=== PATIENT | female | born 1980 | race Caucasian/White ===

== ENCOUNTER → 2021-01-04 11:14 | Outpatient (CLI) | payer OTHER, SELFPAY ==
--- NOTE | 2021-01-04 | DI.MRI.S_ITS ---
PROCEDURE: MR LUMBAR SPINE WO CON INDICATIONS: Spinal stenosis, lumbar region with neurogenic claudication TECHNIQUE: Noncontrast sagittal T1 spin echo and T2 fast echo, sagittal STIR, axial T1 and T2 fast spin echo through the lumbar spine. In cases with scoliosis, additional coronal T2 fast spin echo may be performed. COMPARISON: [facility] Outside Film, MR, MR LUMBAR SPINE WITHOUT CONTRAST, 03/16/2018, 20:55. FINDINGS: Image quality: Excellent. Alignment and Curvature: No plain films are available for comparison, for numbering purposes. Thus, for the purposes of this examination, 5 lumbar type vertebral bodies will be presumed, as denoted on the montage panel. This should be confirmed and correlated with plain films, prior to any lumbar spinal intervention. Loss of normal lumbar lordosis. Minimal grade 1 retrolisthesis of L3 on L4 and L4 on L5. Bone Marrow: Marrow is of normal overall signal. No acute vertebral body compression fractures. Mild reactive signal within the endplates adjacent to the L3-L4 and L4-L5 intervertebral discs. Spinal Cord: Conus medullaris terminates at the mid L2 level. Visualized cord demonstrates normal signal and size. Paraspinous Soft Tissues: No paravertebral masses. T12-L1: Mild disc height loss. No significant canal, or foraminal stenosis. No significant change. L1-L2: Normal appearance. L2-L3: Mild facet and ligamentum flavum hypertrophy. No significant canal, or foraminal stenosis. No change. L3-L4: Mild disc height loss and desiccation. Mild diffuse disc bulge. Mild facet and ligamentum flavum hypertrophy. Mild epidural lipomatosis. Mild canal stenosis. Mild bilateral foraminal stenosis. L4-L5: Moderate disc height loss and desiccation. Mild diffuse disc bulge. Mild facet and ligamentum flavum hypertrophy. Mild epidural lipomatosis. Mild canal stenosis. Mild bilateral foraminal stenosis. No significant change. L5-S1: Mild facet and ligamentum flavum hypertrophy. No significant canal, or foraminal stenosis. No significant change. IMPRESSION: 1. Multilevel degenerative disc and facet disease, as well as ligamentum flavum hypertrophy and epidural lipomatosis. 2. Mild multilevel canal and foraminal stenoses. Dictated by: Presley Villarreal M.D. on 01/05/2021 at 9:09 Approved by: Presley Villarreal M.D. on 01/05/2021 at 9:15
== END ==
PROVIDERS: Referring Provider Orthopaedic Surgery Orthopaedic Surgery of the Spine; Visit Provider Orthopaedic Surgery Orthopaedic Surgery of the Spine
DX: M48.062 Spinal stenosis, lumbar region with neurogenic claudication (principal)
CPT/HCPCS: 72148

== ENCOUNTER 2023-01-15 18:20 | Emergency (ER) | payer OTHER, SELFPAY ==
[2023-01-15 18:51] VITALS: BP 159/102; PULSE 89; RESP 20; TEMP 37.1; O2SAT 99; BMI 33.6
--- NOTE | 2023-01-15 19:51 | PC.NURSE ---
pt states she has noted purulent drainage, pt does not have a dentist
--- NOTE | 2023-01-15 20:18 | ED.GENADULT ---
HPI - General Adult General Chief complaint: Dental/Oral Stated complaint: INFECTED TOOTH Time Seen by Provider: 01/15/23 20:05 Source: patient Mode of arrival: Family Vehicle History of Present Illness HPI narrative: Patient is a 42-year-old female with left-sided facial swelling and dental pain. She has had issues like this in the past receiving antibiotics for them. No problems breathing or swallowing. Related Data Previous Rx's Medication Instructions Recorded penicillin V potassium 500 mg 500 mg PO QID 7 days #28 tabs 01/15/23 tablet Allergies Allergy/AdvReac Type Severity Reaction Status Date / Time acetaminophen [From [place]] Allergy ITCHING Verified 01/15/23 18:58 hydrocodone [From [place]] Allergy ITCHING Verified 01/15/23 18:58 oxycodone Allergy Hives Verified 01/15/23 18:58 amoxicillin [From Augmentin] AdvReac Diarrhea Verified 01/15/23 18:58 ciprofloxacin [From Cipro] AdvReac Shakiness Verified 01/15/23 18:58 clavulanic acid AdvReac Diarrhea Verified 01/15/23 18:58 [From Augmentin] oxybutynin AdvReac Dry Eye Verified 01/15/23 18:58 Review of Systems Constitutional Constitutional: Reports system reviewed and no additional complaints, except as documented ENT Ears, Nose, Mouth, and Throat: Reports system reviewed and no additional complaints, except as documented Respiratory Respiratory: Reports system reviewed and no additional complaints, except as documented Integumentary/Breasts Skin/Breast: Reports system reviewed and no additional complaints, except as documented Hematologic/Lymphatic On Anticoagulants: No Patient History Social History Smoking Status: Never smoker Smoking Status: Never smoker alcohol intake frequency: a few times a month Substance Use Type: does not use Exam Initial Vital Signs Initial Vital Signs: Vital Signs Temperature 98.7 F 01/15/23 18:51 Pulse Rate 89 01/15/23 18:51 Respiratory Rate 20 01/15/23 18:51 Blood Pressure 159/102 H 01/15/23 18:51 Pulse Oximetry 99 01/15/23 18:51 Oxygen Delivery Method Room Air 01/15/23 18:51 HENMT Head: normal to inspection and normocephalic Ears: TM's normal bilaterally Face and sinus: no erythema and other (Swelling left-sided mandibular region) Mouth: oral mucosae normal and moist mucous membranes Teeth and gingiva: fair dentition Resp Effort & Inspection: normal respiratory effort Skin General: no rashes or lesions noted Neuro General: patient alert, patient awake and moves all extremities Extrem General: normal to inspection and capillary refill normal Psych Appearance: grossly normal and well kempt Course Orders Ordered: Discontinued Medications Penicillin V Potassium (Penicillin Vk 250 Mg Tablet) 500 mg PO NOW ONE Stop: 01/15/23 20:20 Last Admin: 01/15/23 20:22 Dose: 500 mg Documented By: MADELIN Vital Signs Vital signs: Vital Signs - 8 hr 01/15/23 18:51 Temperature 98.7 F Pulse Rate 89 Respiratory Rate 20 Blood Pressure 159/102 H Pulse Oximetry 99 Oxygen Delivery Method Room Air Medical Decision Making MDM Narrative Medical decision making narrative: Is no defined abscess noted in the oral cavity although her history and physical exam would be consistent with a dental infection. There are no skin changes over the area consistent with cellulitis. We do need to put her on antibiotics she was given a dose here in the emergency department was sent home with a prescription. She was instructed she need to follow-up with the dentist. She was given return precautions. She expressed understanding and agreement. Discharge Plan Departure Patient Disposition: Home Clinical Impression: Dental abscess Instructions: Tooth Abscess Activity Restrictions/Additional Instructions: I do recommend that you take the antibiotics as directed. You also need a follow-up with a dentist as an outpatient. The antibiotics were sent to the pharmacy of your choice. Return to the emergency department for new or worsening symptoms. Prescriptions: New penicillin V potassium 500 mg tablet 500 mg PO QID 7 Days Qty: 28 0RF Referrals: ProviderMike [Primary Care Provider] - Stand Alone Forms: Patient Portal/API
[2023-01-15] MEDS: PENICILLIN VK 250 MG TABLET 500 MG PO (20:22)
== END 2023-01-15 20:25 | disposition home or self-care (01) ==
PROVIDERS: Emergency Provider Emergency Medicine
DX: K04.7 Periapical abscess without sinus (principal)
CPT/HCPCS: 99283

== ENCOUNTER → 2024-07-10 10:07 | Outpatient (CLI) | payer OTHER, SELFPAY | PROVIDERS: Referring Provider Family Medicine; Visit Provider Family Medicine | DX: R92.8 Other abnormal and inconclusive findings on diagnostic imaging of breast (principal) ==

== ENCOUNTER → 2024-07-16 09:32 | Outpatient (CLI) | payer OTHER, SELFPAY ==
--- NOTE | 2024-07-16 | DI.MG.S_ITS ---
UNILATERAL LEFT DIGITAL DIAGNOSTIC MAMMOGRAM 3D/2D WITH ADDITIONAL VIEWS: 07/16/2024 CLINICAL: Additional evaluation requested from prior study. Comparison is made to exams dated: 06/27/2024 mammogram and 06/14/2022 mammogram - outside location. The breasts are heterogeneously dense, which may obscure small masses (category c / 51-75% glandular tissue). Redemonstration of previously described oval focal asymmetry in the left breast at 9 o'clock posterior depth. This is seen in additional views. No other significant masses or calcifications are seen in the breast. IMPRESSION: INCOMPLETE: NEED ADDITIONAL IMAGING EVALUATION The oval focal asymmetry in the left breast resembles a cyst or a lymph node and is indeterminate. An ultrasound is recommended for further evaluation and is scheduled to immediately follow this examination. Based on the Tyrer Cuzick model (a risk assessment model) the patient's lifetime risk is 14.3% and her 10 year risk is 2.4%. According to the ACR, ACS, and NCCN guidelines, an annual breast MRI exam along with mammogram is recommended if the patient's lifetime risk is 20% or greater. This exam was interpreted at Station ID: [id number]. NOTE: For mammograms, a report in lay terms will be sent to the patient. Approximately 15% of breast malignancies will not be visualized mammographically. In the management of a palpable breast mass, a negative mammogram must not discourage biopsy of a clinically suspicious lesion. Electronically Signed By: Fabian Bolden M.D. aty/:07/17/2024 07:58:35 letter sent: Additional Imaging Needed ACR BI-RADS Category 0: Incomplete: Need Additional Imaging Evaluation
--- NOTE | 2024-07-16 09:33 | DI.US.S_ITS ---
LIMITED ULTRASOUND OF LEFT BREAST: 07/16/2024 CLINICAL: Patient returns today to evaluate an asymmetry in the left breast. Comparison is made to exams dated: 07/16/2024 mammogram - [facility], 06/27/2024 mammogram, and 06/14/2022 mammogram - outside location. Color flow and real-time ultrasound of the left breast 9 o'clock region were performed. Fisher scale images of the real-time examination were reviewed. There is a 0.5 cm x 0.3 cm x 0.5 cm oval mass in the left breast at 9 o'clock posterior depth 15 cm from the nipple. This oval mass is hypoechoic. This correlates with mammography findings. Color flow imaging demonstrates that there is no vascularity present. IMPRESSION: PROBABLY BENIGN The 0.5 cm x 0.3 cm x 0.5 cm oval mass in the left breast resembles a complicated cyst or a lymph node and is probably benign. A follow-up left mammogram and a left ultrasound in 6 months is recommended to demonstrate stability. Findings and recommendations were conveyed to the patient during today's evaluation. This exam was interpreted at Station ID: [id number]. Electronically Signed By: Fabian Bolden M.D. aty/:07/17/2024 08:00:43 letter sent: Followup Recommended ACR BI-RADS Category 3: Probably Benign
== END ==
PROVIDERS: Referring Provider Family Medicine; Visit Provider Family Medicine
DX: R92.8 Other abnormal and inconclusive findings on diagnostic imaging of breast (principal); R92.333 Mammographic heterogeneous density, bilateral breasts; N63.25 Unspecified lump in the left breast, overlapping quadrants
CPT/HCPCS: 76642; 77065; G0279

== ENCOUNTER → 2025-03-19 10:15 | Outpatient (CLI) | payer OTHER, SELFPAY ==
--- NOTE | 2025-03-19 10:16 | DI.MG.S_ITS ---
MM diagnostic mammo unilat LT, US breast LT limited: 03/19/2025 BI-RADS: 3 CLINICAL: 44-year old female for left diagnostic mammogram and left diagnostic breast ultrasound. Tyrer-Cuzick lifetime risk of 17.0%. No personal or first-degree family history of breast cancer. PRIOR EXAMS 07/16/2024, Outside [facility] 06/27/2024, 06/14/2022. MAMMOGRAPHY TECHNIQUE: 2D and 3D (tomosynthesis) digital mammographic views obtained, with additional images as needed for full coverage. Current study was also evaluated with a Computer Aided Detection (CAD) system. ULTRASOUND TECHNIQUE TARGETED Left Breast Ultrasound: Real-time ultrasound exam was performed focused to area of clinical and/or imaging concern. DENSITY Left: C. The breasts are heterogeneously dense, which may obscure small masses. MAMMOGRAPHY FINDINGS Left: Lower Inner at 8:30, Posterior depth: There is a focal asymmetry present. ULTRASOUND FINDINGS Left: Inner at 9:00, 15 cm from nipple: Prior finding not visualized. No US correlate to mammogram. IMPRESSION: Left (Asymmetry): Lower Inner at 8:30, Posterior depth * Probably Benign. RECOMMENDATIONS Left: Lower Inner at 8:30, Posterior depth * Six month followup with diagnostic mammography. OVERALL ASSESSMENT CATEGORY BI-RADS-3: Probably Benign. ELECTRONICALLY SIGNED: Jacob Garcia M.D. on 03/19/2025 at 11:20:09 AM PT Interpreting Station ID: [id number]
== END ==
LOC: MAMMO 10:15
PROVIDERS: PCP Family Medicine; Referring Provider Family Medicine; Visit Provider Family Medicine
DX: R92.8 Other abnormal and inconclusive findings on diagnostic imaging of breast (principal); R92.332 Mammographic heterogeneous density, left breast
CPT/HCPCS: 76642; 77065; G0279